=== PATIENT | male | born 1975 | race Caucasian/White ===

== ENCOUNTER 2017-02-08 17:07 | Emergency (ER) | payer BC ==
--- NOTE | 2017-02-08 18:04 | ERNOTE ---
<AndreaAngie - Last Filed: 02/08/17 19:03> Psychological HPI - General Chief Complaint: Psychiatric Problem Source: Reports: patient Exam Limitations: Reports: clinical condition - Immun/Allergies/Home Medications Allergies/Adverse Reactions: Allergies No Known Allergies Allergy (Verified 02/08/17 17:49) Home Medications: HOME MEDICATIONS Haloperidol [Haldol] 5 mg PO 02/08/17 [Last Taken Unknown] - History of Present Illness Narrative: patient is a schizophrenic who has not been following up with Vicki Contreras. He is court committed and brought in by law enforcement for hallucinations and when asked, he denies any hallucinations Time Seen by Provider: 02/08/17 17:19 Arrived by: Reports: police Review of Systems - Review of Systems Constitutional: Present: no symptoms reported EYE: Present: no symptoms reported ENT: Present: no symptoms reported Respiratory: Present: no symptoms reported Cardiology: Present: no symptoms reported Gastrointestinal/Abdominal: Present: no symptoms reported Genitourinary: Present: no symptoms reported Musculoskeletal: Present: no symptoms reported Skin: Present: no symptoms reported Neurological: Present: no symptoms reported Psych: Present: other - report from Vicki Contreras is that pt has been hallucinating and walking around in the streets and posing a danger to himself - Patient's Past Medical History Patient History - Medical: Anxiety, Bipolar, Other Patient History - Cardiac/Respiratory: No pertinent hx Patient History - Cancer: No Hx of Cancer Patient History - Surgical Procedures: Other Patient History - Other: None - Family History Grandmother Family History - Cardiac/Respiratory: CVA/Stroke - Social History Living Situations: alone Abuse History: No History of abuse Psych History: Psychiatric Hx, Hx of Anxiety Smoking Status: Current every day smoker Patient requests Smoking Cessation Consult: No Initiate information on Smoking Cessation: No Alcohol Use: heavy Drug Use: cocaine, meth - Immunizations Immunizations Up to Date: No Hx Pneumococcal Vaccination: No History of Influenza Vaccine: No Physical Exam - Physical Exam General Appearance: Present: wd/wn, alert, no apparent distress Ears, Nose, Throat: Present: normal ENT inspection Neck: Present: normal inspection, nontender Respiratory: Present: no respiratory distress, normal breath sounds, chest nontender, lungs clear Gastrointestinal/Abdominal: Present: normal bowel sounds, nontender Back Exam: Present: normal inspection Extremity Exam: Present: normal inspection Neurological Exam: Present: alert, oriented, normal mood/affect, no motor/ sensory deficits, other - psychiatrically, patient is noted by staff to be hallucinating and talking to entities that are not present. I did not see any such behavior tonight. Pt however adamantly refuses to take Geodon 20mg IM as recommended by Vicki Contreras ED Progress - Results and Orders Patient's Lab Results:: I have reviewed the patient's lab results. - Vital Signs Patient's Vital Signs:: I have reviewed the patient's vital signs. Vital Signs: Vital Signs 02/08/17 17:37 Temperature 37.0 C Pulse Rate 80 Respiratory 16 Rate Blood Pressure 155/102 O2 Sat by Pulse 99 Oximetry - Progress/Reassessment Chief Complaint: Psychiatric Problem - Transfer of Care Physician Sign Out: Angie Mendez Receiving Physician: Idris Lara Pending Results: Labs, Physician/consult arrival - transfer Expected Disposition: Transfer Plan - Plan Plan: pt is schizophrenic and actively hallucinating, and has not been compliant with court order. Will sign out to oncoming provider Departure Clinical Impression: Schizophrenia Qualifiers: Schizophrenia type: other Qualified Code(s): F20.89 - Other schizophrenia - Departure Disposition: Transferred to other hospital Condition: Fair Referrals: Vicki Ascencio ARNP [Primary Care Provider] - <Idris Lara - Last Filed: 02/09/17 02:56> Psychological HPI - Date Date of Service: 02/09/17 ED Progress - Results and Orders Patient's Lab Results:: I have reviewed the patient's lab results. - Vital Signs Patient's Vital Signs:: I have reviewed the patient's vital signs. Vital Signs: Vital Signs 02/08/17 02/09/17 23:51 02:38 Temperature 36.6 C 36.6 C Pulse Rate 74 70 Respiratory 16 16 Rate Blood Pressure 128/60 131/65 O2 Sat by Pulse 98 98 Oximetry - Progress/Reassessment Progress:: Unchanged - DR HOLLYE [facility] IN [place] HAS ACCEPTED PT IN TRANSFER.
--- OUTSIDE RECORDS SUMMARY | 2017-02-08 18:25 | XMS REPORT | Continuity of Care Document ---
:1975 Author Organization [facility] [place] [address] Phone [phone] Care Team Providers Name Role Phone Unavailable Primary Care Provider Unavailable Active Allergies and Adverse Reactions No Known Allergies Current Medications Always verify current medications with the patient because some medications mayno longer be current as of this document. Prescription Sig. Disp. Refills Start Date End Date Status paliperidone (INVEGA) Take 1 Tab by mouth 7 Each 0 04/25/2016 Active 6 MG ER tablet daily as needed for Other (Increased psychotic symptoms). Indications: Schizophrenia Paliperidone Inject 1 mL into the 1 mL 0 04/25/2016 Active Palmitate (INVEGA muscle every 30 days. SUSTENNA) 156 MG/ML Next injection is due SUSP on 05/22/2016 Indications: Schizophrenia Active Problems Problem Noted Date Amphetamine use disorder, severe (HCC) 04/14/2016 Schizophrenia (HCC) 04/14/2016 Social History Tobacco Use Types Packs/Day Years Used Date Never Assessed Last Filed Vital Signs Vital Sign Reading Time Taken Blood Pressure 123/87 04/26/2016 6:00 AM CDT Pulse 75 04/26/2016 6:00 AM CDT Temperature 36.3 C (97.4 F) 04/26/2016 6:00 AM CDT Respiratory Rate 16 04/26/2016 6:00 AM CDT Height 1.727 m (5' 8") 04/14/2016 1:00 PM CDT Weight 72.53 kg (159 lb 14.4 oz) 04/20/2016 6:00 AM CDT Body Mass Index 24.32 04/20/2016 6:00 AM CDT Oxygen Saturation - - Plan of Care Health Maintenance Due Date Last Done Comments [facility] Dtap/Tdap/Td Vaccines (1 - Tdap) 1994 [facility] Completed 04/23/2016 Results from Last 3 Months Not on file
[2017-02-08 18:27] LABS: Hematocrit 46.5 % (42.0-52.0); Hemoglobin 16.8 gm/dL (13.5-18.0); Mean Cell Volume 87.6 fl (78-100); Mean Corpuscular Hemoglobin 31.6 pg (27-31); Mean Corpuscular Hgb Conc 36.1 g/dl (32-36); Mean Platelet Volume 10.5 fl (6.0-9.5); Neutrophil # 6.5 K/mm3 (1.3-6.0); Neutrophil % 67.1 % (42-75.0); Platelet Count 254 K/mm3 (150-450); Red Blood Count 5.31 M/mm3 (4.7-6.0); Red Cell Distribution Width 11.8 % (11.5-14.0); White Blood Count 9.7 K/mm3 (4.0-10.5)
[2017-02-08] MEDS ORDERED: ZIPRASIDONE MESYLATE 20 MG VIAL IM ONE ×2 (18:29→18:45)
[2017-02-08 18:39] LABS: ALT 46 U/L (19-67); AST 27 U/L (0-48); Albumin * 4.4 gm/dl (3.4-5.0); Alkaline Phosphatase * 67 U/L (50-170); Anion Gap 11.8 mmol/L (6.8-13.8); BUN/Creatinine Ratio 12.6 (9.0-21.6); Bilirubin, Total 0.5 mg/dL (0.0-1.1); Blood Urea Nitrogen 11 mg/dL (6-23); Ca. Corrected For Albumin 8.9 mg/dL (8.4-10.2); Calcium * 9.5 mg/dL (7.9-10.9); Carbon Dioxide 31.1 mmol/L (24-32.6); Chloride 104 mmol/L (97-106); Glucose * 82 mg/dL (70-110); Potassium 3.9 mmol/L (3.4-4.6); Salicylate Less than 2.8 mg/dL (2.8-20.0); Sodium 143 mmol/L (132-142); TSH * 1.599 uIU/mL (0.358-3.74)
[2017-02-08 18:52] LABS: Urine Bilirubin Negative (NEGATIVE); Urine Blood Negative /ul (NEGATIVE); Urine Ketone Negative (NEGATIVE); Urine Nitrite Negative (NEGATIVE); Urine Protein Negative (NEGATIVE); Urine Specific Gravity <=1.005 SP.GR. (1.005-1.030); Urine Urobilinogen Normal (NORMAL)
[2017-02-08 19:03] LABS: Urine Appearance Clear; Urine Color Yellow
[2017-02-08 19:04] LABS: Cocaine Ur Negative (NEGATIVE); Urine Bacteria None Seen; Urine Barbiturate Negative (NEGATIVE); Urine Benzodiazepines Negative (NEGATIVE); Urine Opiates Negative (NEGATIVE); Urine PCP Negative (NEGATIVE); Urine RBC None Seen /hpf (0-5); Urine THC Negative (NEGATIVE); Urine WBC None Seen /hpf (0-5)
[2017-02-09 02:38] VITALS: BP 131/65
== END 2017-02-09 03:05 | disposition short-term general hospital (02) ==
LOC: ER 17:07
DX: F20.89 Other schizophrenia (principal); Z72.0 Tobacco use
CPT/HCPCS: 36415; 80053; 80307; 81001; 84443; 85025; 93005; 99285; G0480; G0481